=== PATIENT | male | born 1945 | race Caucasian/White ===

== ENCOUNTER 2018-02-25 12:28 | Day surgery (SDC) | payer OTHER ==
[2018-02-25] MEDS ORDERED: MIDAZOLAM 2 MG/2 ML VIAL IVP ONE (12:34)
[2018-02-25] MEDS ORDERED: NS 500 ML IV ONE (12:34)
[2018-02-25] MEDS ORDERED: BENZOCAINE UNIT DOSE SPRAY HURRICAINE MM ONE (12:34)
[2018-02-25] MEDS ORDERED: fentaNYL 100 MCG/2 ML INJ IVP ONE (12:34)
[2018-02-25] MEDS ORDERED: ATROPINE SULFATE 1 MG/10 ML SYR IVP ONE (12:34)
--- NOTE | 2018-02-25 13:04 | CPEKG ---
Heart Rate: 93 RR Interval: 645 QRSD Interval: 102 QT Interval: 396 QTC Interval: 493 QRS [place]: -51 T Wave Bel[place]: 42 EKG Severity - ABNORMAL ECG - EKG Impression: ATRIAL FLUTTER, A-RATE 283 EKG Impression: INFERIOR INFARCT, OLD EKG Impression: Agree with above Electronically Signed By: Alonzo Forbes 25-Feb-2018 16:02:41
[2018-02-25 13:46] LABS: INR 1.25 (0.83-1.16); PROTIME(PATIENT) 15.9 SEC (12.0-15.0)
--- NOTE | 2018-02-25 13:52 | PDANEPAE ---
ANE Past Medical History - Pulmonary History Hx Sleep Apnea: No ANE Review of Systems Review of Systems: ANE Patient History - Allergies Allergies/Adverse Reactions: cat dander Allergy (Verified 02/22/18 15:30) lentils Allergy (Verified 02/22/18 15:30) peas Allergy (Verified 02/22/18 15:30) scallops Allergy (Verified 02/22/18 15:30) - Smoking Hx Smoking Status: Former smoker ANE Labs/Vital Signs - Labs Result Diagrams: 02/25/18 13:18 - Vital Signs Height: 165 cm Weight: 71.7 kg ANE Physical Exam - Airway Neck exam: FROM Mallampati Score: Class 2 - Pulmonary Pulmonary: no respiratory distress - Cardiovascular Cardiovascular: regular rate and rhythym - ASA Status ASA Status: II ANE Anesthesia Plan Total IV Anesthesia: Yes
[2018-02-25] MEDS ORDERED: LIDOCAINE 2% 5 ML SDV ONE (13:54)
[2018-02-25] MEDS ORDERED: PROPOFOL/EMULSION 500 MG/50 ML BOTTLE IV ONE (13:54)
--- NOTE | 2018-02-25 14:04 | PDHPUP ---
History & Physical Update H&P update statement: This history and physical update is based on an assessment of the patient which was completed after admission or registration (within 24 hours), but prior to the surgery/procedure. H&P update: no change in patient's condition since H&P completed
[2018-02-25] MEDS ORDERED: ALBUTEROL 3 ML DEYVIAL IH PRN (14:24)
[2018-02-25] MEDS ORDERED: NALOXONE HCL 0.4 MG/ML INJ IVP PRN (14:24)
--- NOTE | 2018-02-25 14:25 | POSTANESTH ---
Post Anesthetic Evaluation Cardiovascular Status: Normal, Stable Respiratory Status: Similar to Pre-op Cond. Level of Consciousness/Mental Status: Mildly Sleepy, Arousable Pain Control: Adequate, Prn Tx Ordered Nausea/Vomiting Control: Adequate, Prn Tx Ordered Complications Possibly Related to Anesthesia: None Noted
--- NOTE | 2018-02-25 14:33 | CPEKG ---
Heart Rate: 68 RR Interval: 882 P-R Interval: 208 QRSD Interval: 106 QT Interval: 424 QTC Interval: 451 P [place]: 77 QRS [place]: -33 T Wave [place]: 41 EKG Severity - ABNORMAL ECG - EKG Impression: SINUS RHYTHM EKG Impression: INCOMPLETE RIGHT BUNDLE BRANCH BLOCK EKG Impression: LOW VOLTAGE THROUGHOUT EKG Impression: Resolution of atrial flutter since February 25, 2018, 13:02 Electronically Signed By: Alonzo Forbes 25-Feb-2018 16:02:13
--- NOTE | 2018-02-25 15:14 | CPIP ---
[f rep st] INVASIVE CARDIAC PROCEDURE DIAGNOSIS: Atrial flutter. PROCEDURE: Transesophageal echocardiographic study and cardioversion. DESCRIPTION OF PROCEDURE: The patient gave informed consent. We went over all the options and all t he risks, and he wanted to proceed with the study. His transesophageal echocardiogram was performed. He had no significant abnormalities involving the atria, and a bubble study was negative. He had good velocities in the left atrial appendage. He had no smoke in the left atrium. He did not have clot seen or thrombus seen in the left atrial appendag e. We proceeded with cardioversion at 200 watt seconds and he converted from atrial flutter to normal si nus rhythm. He is waking up as I dictate this. Anesthesia is with him. He is moving all extremities. I am going to go talk to his . /[id number]/MODL
== END 2018-02-25 16:02 | disposition home or self-care (01) ==
LOC: FCATH 12:28
PROVIDERS: ATTEND Internal Medicine
PROC: 5A2204Z Restoration of Cardiac Rhythm, Single (ICD-10-PCS; principal; 2018-02-25)
DX: I48.92 Unspecified atrial flutter (principal); Z87.891 Personal history of nicotine dependence
CPT/HCPCS: J0461; J2704

== ENCOUNTER → 2018-05-02 | Outpatient (CLI) | payer OTHER ==
[~2018-05-02] MED LIST: GADOBUTROL 10 ML VIAL IVP ONE
== END ==
LOC: FIMAGING 12:35
PROVIDERS: ATTEND Urology
DX: C61 Malignant neoplasm of prostate (principal)
CPT/HCPCS: 72197; A9585

== ENCOUNTER → 2018-05-27 | Outpatient (CLI) | payer OTHER | LOC: FIMAGING 09:18 | PROVIDERS: ATTEND Urology | DX: C61 Malignant neoplasm of prostate (principal) | CPT/HCPCS: 82565-PO ==